=== PATIENT | female | born 1990 | race Caucasian/White ===

== ENCOUNTER 2018-10-27 21:19 | Emergency (ER) | payer MEDICAID, OTHER ==
[~2018-10-27] VITALS: Ht 160 cm; Wt 66.1 kg
[~2018-10-27 21:19] MED LIST: ACET500C5 PO; CEPH-443 PO
[2018-10-27 21:25] VITALS: Ht 160 cm; Wt 66.1 kg
[2018-10-27] MEDS ORDERED: ACETAMINOPHEN 325 MG TAB PO STA (22:54)
[2018-10-28 02:26] VITALS: BP 123/80; PULSE 80; RESP 18
== END 2018-10-28 02:26 | disposition home or self-care (01) ==
LOC: FTE 21:19
DX: O23.41 Unspecified infection of urinary tract in pregnancy, first trimester (principal); O20.0 Threatened abortion; R10.2 Pelvic and perineal pain; Z3A.01 Less than 8 weeks gestation of pregnancy
CPT/HCPCS: 36415; 76801; 80053; 81001; 84702; 85025; 87086; Z7502; Z7610